=== PATIENT | male | born 1940 | race Caucasian/White ===

== ENCOUNTER 2019-09-08 14:39 | Emergency (ER) | payer MEDICARE, OTHER ==
--- NOTE | 2019-09-08 15:28 | CT ---
CT cervical spine noncontrast HISTORY: Fall. Neck injury. FINDINGS: Vertebral body heights and alignment are maintained. No acute fracture or dislocation evide nt. There is disc space narrowing and prominent osteophytosis at each level. Gas disc phenomenon is most pronounced at the C5-6 level. Posterior osteophyte/disc complex most severe at the C4-5 and C5-6 levels. Multilevel severe central canal and foraminal stenoses. 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 No acute osseous abnormalities are demonstrated.
--- NOTE | 2019-09-08 15:45 | CT ---
BRAIN CT WITHOUT IV CONTRAST: HISTORY: Marked frontal subcutaneous hematoma. There is some minimal atrophy and chronic white matter ischemi c change. There is no focal mass or midline shift. No intra- or extraaxial hemorrhage. There does appear to be some minimal air density overlying both the right and left orbit regions, possibly eithe r a tiny amount of air within the orbits or a tiny amount of intracranial air or pneumocephalus. The re is some fluid noted within the frontal sinuses and ethmoid sinuses and right maxillary sinus. The re appear to be bilateral nasal bone fractures. 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 This probably represents a bending-type fracture, age in determinate. IMPRESSION: 1. No significant acute intracranial mass or hemorrhage. 2 small foci of air noted overlying the munoz perior orbit region, possibly either a tiny amount of air within the upper orbits or pneumocephalus. 2. Nasal bone fractures. 3. Prominent frontal subcutaneous scalp hematoma. 4. Bending deformity of the posterolateral right orbital wall, age indeterminate. 5. Some fluid within the frontal and ethmoid and right maxillary sinuses. 6. Findings were discussed with Dr. Wall and Dexter including the need for a followup facial bone CT scan. CODE CR POS: OFF
--- NOTE | 2019-09-08 16:10 | CT ---
CT MAXILLOFACIAL NONCONTRAST: 09/08/19 HISTORY: 79-year-old male status post acute facial trauma from fall. FINDINGS: There is a hematoma in the anterior superficial soft tissues anterior to the frontal sinuses, centere d slightly to the left of midline. There are air fluid levels in the bilateral frontal sinuses. In the setting of trauma, this raises th e possibility of blood. No displaced fracture of the leach of the frontal sinuses is identified. There is an acute comminuted fracture of the nasal bones with mild displacement and overlying superfi cial soft tissue contusion and swelling. Nasal septal deviation to the left, with several mild angulations. Uncertain whether this is chronic or acute fracture or combination of both. There are several, at least three, tiny foci of extraconal intraorbital gas in the right orbit. One o f them abuts the undersurface of the right orbital roof just lateral to the superior rectus muscle. T here is another focus of gas just medial to the right superior oblique muscle. There is no intraorbit al edema or hematoma. The globes are bilaterally intact. Similarly, there are tiny foci of extraconal intraorbital gas at the anterior superior aspect of the left orbit. No displaced orbital wall fracture identified. There is buckling of the lateral wall of the right maxillary sinus consistent with fracture of indete rminate age, presumably acute. There is a small air fluid level in the right maxillary sinus chamber, probably representing blood. Left maxillary sinus is clear. No displaced fracture of the lamina jessy racea identified. Mucosal thickening of anterior ethmoid air cells. Posterior ethmoid air cells, sphe noid sinus, and bilateral tympanomastoid cavities are clear. Zygomatic arches and pterygoid plates ar e intact. IMPRESSION: 1. Acute, traumatic, comminuted, mildly displaced nasal bone fractures. 2. Tiny amounts of bilateral superior intraorbital extraconal air. The source is not obvious, bu t one possibility is nondisplaced occult bilateral lamina papyracea fractures or occult frontal sinus fractures. 3. Mildly displaced fracture of posterolateral wall of right maxillary sinus with associated sma ll right hemoantrum. 4. Fluid in the frontal sinuses, questionable for blood. No displaced fracture of leach of front al sinus is identified but there is a possibility of occult nondisplaced fracture. POS: TPC
[2019-09-08] MEDS ORDERED: Bacitracin 1 PK ONE (16:51)
== END 2019-09-08 16:45 | disposition home or self-care (01) ==
LOC: ERS 14:39
DX: S02.40CA Maxillary fracture, right side, initial encounter for closed fracture (principal); S02.2XXA Fracture of nasal bones, initial encounter for closed fracture; S00.83XA Contusion of other part of head, initial encounter; S80.211A Abrasion, right knee, initial encounter; S60.512A Abrasion of left hand, initial encounter; S60.511A Abrasion of right hand, initial encounter; S60.417A Abrasion of left little finger, initial encounter; Z79.899 Other long term (current) drug therapy; W01.10XA Fall on same level from slipping, tripping and stumbling with subsequent striking against unspecified object, initial encounter
CPT/HCPCS: 70450; 70486; 72125; L0120

== ENCOUNTER 2020-09-07 12:46 | Emergency (ER) | payer MEDICARE, OTHER ==
[2020-09-07] MEDS ORDERED: Boostrix 0.5 ML (Tdap) VIAL ONE (13:22)
[2020-09-07] MEDS ORDERED: Bacitracin 1 PK ONE (13:22)
[2020-09-07 13:33] LABS: #Basophils 0.1 thou/uL (0.0-0.2); #Eosinphils 0.3 thou/uL (0.0-0.7); #Lymphocytes 1.3 thou/uL (1.20-3.40); #Monocytes 0.5 thou/uL (0.11-0.59); #Neutrophils 3.2 thou/uL (1.40-6.50); %Basophils 1.5 % (0.0-1.0); %Eosinophils 4.9 % (0.0-10.0); %Lymphocytes 24.3 % (21.0-51.0); %Monocytes 9.3 % (0.0-10.0); %Neutrophils 60.1 % (42.0-75.0); Hemoglobin 13.1 g/dL (14.0-18.0); Mean Corpuscular HGB CONC 33.3 g/dL (32.0-36.0); Mean Corpuscular Hemoglobin 32.7 pg (27.0-31.0); Mean Corpuscular Volume 97.9 fL (78.0-98.0); Mean Platelet Volume 9.2 fL (7.4-10.4); Platelet Count 182 thou/uL (130-400); RBC Distribution Width 12.2 % (11.5-14.5); White Blood Cell (WBC) Count 5.3 thou/uL (4.8-10.8)
--- NOTE | 2020-09-07 13:37 | RAD ---
EXAM: 3 views of the left wrist HISTORY: Wrist pain COMPARISON: None FINDINGS: 3 views of the left wrist shows an intra-articular vertically oriented fracture of the dist al radius extending to the radiocarpal joint. Moderate surrounding soft tissue swelling is seen. No degenerative changes are present. IMPRESSION: Intra-articular distal radius fracture
--- NOTE | 2020-09-07 13:38 | RAD ---
EXAM: 3 views of the left hand COMPARISON: None HISTORY: Hand pain after fall FINDINGS: 3 views of the hand shows an intra-articular fracture of the distal radius. No fractures of the bones of the hand are seen. No degenerative changes are seen. Moderate wrist soft tissue swelling is present. IMPRESSION: Distal radius fracture
--- NOTE | 2020-09-07 13:39 | RAD ---
EXAM: 2 views of the left hip HISTORY: Left hip pain after fall COMPARISON: None FINDINGS: 2 views of the left hip shows no evidence of acute fracture or dislocation. Mild to moderat e degenerative changes are seen. No soft tissue swelling is present. IMPRESSION: No evidence of acute osseous abnormality.
--- NOTE | 2020-09-07 13:41 | RAD ---
EXAM: Single view of the chest HISTORY: Chest pain after fall COMPARISON: None FINDINGS: Single view of the chest shows an enlarged cardiomediastinal silhouette. There is no eviden ce of consolidation, mass, or pleural effusion. There may be a fracture of the lateral left eighth rib. No pneumothorax is seen. Degenerative changes are seen in the spine. IMPRESSION: 1. Cardiomegaly without evidence of acute cardiopulmonary disease 2. Left eighth rib fracture
--- NOTE | 2020-09-07 13:49 | CT ---
EXAM: CT brain without contrast HISTORY: Fall with head trauma and loss of consciousness COMPARISON: 09/08/2019 TECHNIQUE: Multiple contiguous axial images were obtained and a CT of the brain without contrast. FINDINGS: There are scattered hypodensities in the subcortical and periventricular white matter consi stent with small vessel ischemic disease. There is no evidence of hydrocephalus, intracranial hemorrhage, or extra-axial fluid collection. Soft tissue swelling is seen in the left frontal scalp. The underlying calvarium is unremarkable. The visualized paranasal sinuses and mastoid air cells are well aerated. IMPRESSION: No evidence of acute intracranial abnormality
--- NOTE | 2020-09-07 13:51 | CT ---
EXAM: CT of the cervical spine without contrast HISTORY: Neck pain after head trauma COMPARISON: 09/08/2019 TECHNIQUE: Multiple contiguous axial images were obtained in a CT of the cervical spine without contr ast. Sagittal and coronal reformats were performed. FINDINGS: The vertebral bodies demonstrate normal height and alignment without fracture or subluxatio n. Moderate to severe stable degenerative changes are seen throughout the cervical spine. No prevertebral soft tissue swelling is seen. The posterior facets are well aligned. Normal alignment of the skull base with the cervical spine is seen. The lung apices and cervical soft tissues are unremarkable. IMPRESSION: No evidence of acute osseous abnormality of the cervical spine.
[2020-09-07] MEDS ORDERED: Ondansetron PF 4 MG/2 ML Vial ONE (13:58)
[2020-09-07] MEDS ORDERED: Morphine 4 MG/ML VIAL ONE (13:58)
[2020-09-07 14:03] LABS: ALT (SGPT) 24 U/L (8-55); AST (SGOT) 33 U/L (5-34); Albumin 3.7 g/dL (3.4-4.8); Alkaline Phosphatase 66 U/L (40-110); Anion Gap 16 mmol/L (10-20); BUN (Urea Nitrogen) 14 mg/dL (8.4-25.7); Bilirubin, Total 1.1 mg/dL (0.2-1.2); Calc. Creatinine Clearance 0 mL/min (70-130); Calcium 9.1 mg/dL (7.8-10.44); Carbon Dioxide 24 mmol/L (23-31); Chloride 105 mmol/L (98-107); Estimated GFR-MDRD 81; Globulin 3.2 g/dL (2.4-3.5); Glucose 119 mg/dL (83-110); Potassium 5.6 mmol/L (3.5-5.1); Protein, Total 6.9 g/dL (5.8-8.1); Sodium 139 mmol/L (136-145)
[2020-09-07 14:28] LABS: Bilirubin Negative (Negative); Blood, Urine Negative (Negative); Clarity Clear (Clear); Glucose, Urine (Dipstick) Normal (Negative); Ketone, Urine Negative (Negative); Leukocyte Negative Leu/uL (Negative); Nitrite Negative (Negative); Protein, Urine (Dipstick) Negative (Neg-Trace); Specific Gravity, Urine 1.011 (1.002-1.036); Urobilinogen Normal mg/dL (Less than 2); pH, Urine 7.5 (5.0-9.0)
== END 2020-09-07 15:57 | disposition home or self-care (01) ==
LOC: ERS 12:46
DX: S52.572A Other intraarticular fracture of lower end of left radius, initial encounter for closed fracture (principal); S00.83XA Contusion of other part of head, initial encounter; E11.9 Type 2 diabetes mellitus without complications; E78.5 Hyperlipidemia, unspecified; E78.00 Pure hypercholesterolemia, unspecified; Z79.4 Long term (current) use of insulin; Z79.899 Other long term (current) drug therapy; W18.30XA Fall on same level, unspecified, initial encounter
CPT/HCPCS: 36415; 70450; 71045; 72125; 80053; 81003; 84484; 85025; 90471; 90715; 93005; 96374; 96375; J2270; J2405